=== PATIENT | male | born 1970 | race American Indian/Alaskan Native ===

== ENCOUNTER 2020-03-07 08:26 | Emergency (ER) | payer MEDICARE ==
--- NOTE | 2020-03-07 09:45 | Emergency Department Report ---
HPI - General Chief Complaint: Seizure Time Seen by Provider: 03/07/20 09:07 - HPI HPI: This is a 49-year-old -[place] male who presents to the emergency department via EMS from [facility] with a complaint of having 2 seizures since midnight, with the second and most recent seizure occurring around 5 AM. At the time of my examination the patient says that he feels fatigued but otherwise okay. He denies any current headache, body aches, chest pain, palpitations. He denies any fever, chills, shortness of breath. He does have a seizure history for which he is compliant with his Dilantin and Topamax. The patient is being seen at [facility] for his bipolar disorder. He also has a medical history of hypertension. He did not take anything, nor receive anything, for his symptoms prior to presentation. As a secondary complaint, the patient also has right hand pain and swelling that has been going on for the past week after the patient punched a wall in anger. ED Past Medical Hx - Past Medical History Previous Medical History?: Yes Hx Hypertension: Yes Hx Seizures: Yes Hx Psychiatric Treatment: Yes (Bipolar) - Surgical History Past Surgical History?: No - Social History Smoking Status: Never Smoker Substance Use Type: None - Medications Home Medications: Home Medications Medication Instructions Recorded Confirmed Last Taken Type Amlodipine Besylate [Norvasc] 5 mg PO DAILY 03/07/20 03/07/20 Unknown History Docusate Sodium [Colace CAP] 100 mg PO BID 03/07/20 03/07/20 Unknown History FLUoxetine [PROzac] 20 mg PO DAILY 03/07/20 03/07/20 Unknown History OLANzapine [ZyPREXA] 10 mg PO QHS 03/07/20 03/07/20 Unknown History Phenytoin [Dilantin] 100 mg PO TID 03/07/20 03/07/20 Unknown History Topiramate [Topamax] 100 mg PO BID 03/07/20 03/07/20 Unknown History ED Review of Systems ROS: Stated complaint: SEIZURE Other details as noted in HPI Comment: All other systems reviewed and negative Constitutional: denies: chills, fever Eyes: denies: eye pain, vision change ENT: denies: ear pain, throat pain Respiratory: denies: cough, shortness of breath Cardiovascular: denies: chest pain, palpitations Gastrointestinal: denies: abdominal pain, vomiting Genitourinary: denies: dysuria, discharge Musculoskeletal: joint swelling (Right hand), arthralgia (Right hand) Skin: denies: lesions, pruritus Neurological: other (Seizures). denies: headache Physical Exam - Physical Exam Vital Signs: Vital Signs 03/07/20 08:35 Temperature 98.1 F Pulse Rate 86 Respiratory 16 Rate Blood Pressure 145/92 O2 Sat by Pulse 99 Oximetry Physical Exam: GENERAL: The patient is well-developed well-nourished. HENT: Normocephalic. Atraumatic. Patient has moist mucous membranes. EYES: Extraocular motions are intact. NECK: Supple. Trachea is midline. CHEST/LUNGS: Clear to auscultation. There is no respiratory distress noted. HEART/CARDIOVASCULAR: Regular. There is no tachycardia. There is no murmur. ABDOMEN: Abdomen is soft, nontender. Patient has normal bowel sounds. SKIN: There is nonpitting swelling to the dorsum of the right hand. No erythema, rash or lesions. NEURO: The patient is awake, alert, and oriented. The patient is cooperative. The patient has no focal neurologic deficits. Normal speech. Cranial nerves II through XII grossly intact. MUSCULOSKELETAL: There is tenderness to palpation to the dorsum of the right hand. Radial pulse +2/4 and capillary refill less than 2 seconds to the affected right hand. There is some decreased range of motion of the right hand and fingers secondary to pain and swelling. ED Course Vital Signs 03/07/20 08:35 Temperature 98.1 F Pulse Rate 86 Respiratory 16 Rate Blood Pressure 145/92 O2 Sat by Pulse 99 Oximetry ED Medical Decision Making - Lab Data Result diagrams: 03/07/20 10:14 03/07/20 10:14 - Radiology Data Radiology results: image reviewed interpreted by me: Right hand, 3 views INDICATION: right hand pain, punched wall 1 week ago. COMPARISON: None. FINDINGS: Frontal, lateral, and oblique views of the hand labeled right were obtained. There are mildly displaced transverse fractures of the distal third, fourth, and fifth metacarpals with slight palmar angulation. IMPRESSION: Mildly displaced transverse fractures of the distal right third, fourth, and fifth metacarpals with slight palmar angulation. - Medical Decision Making Regarding the patient's right hand pain, an x-ray shows that he has a fracture of the shaft of the third, fourth and fifth metacarpals. There is slight palmar angulation. The patient does have some dorsal swelling of the hand but it is soft and there does not appear to be any compartment syndrome. He has good distal capillary refill and right wrist radial pulse is +2/4. He has been placed in a volar splint. This occurred 6+ days ago. He has been instructed to follow-up with an orthopedist upon completion of his time at [facility] for his psychiatric treatment. The patient also presented secondary to having 2 seizures since midnight. Since being in the emergency department he is awake, alert, oriented and does not appear in any acute distress. His only complaint is some fatigue. He does not have any focal, motor or sensory deficits and his cranial nerves are intact. Vital signs have been reassuring throughout his ED course including being afebrile. Labs have been mostly unremarkable including CBC, metabolic panel, blood alcohol level, and the patient is therapeutic on his phenytoin. There is an elevation in the CK level but not at a level that is concerning for rhabdomyolysis. Patient was reevaluated multiple times over multiple hours and there has been no return for any seizure-like activity. He has been instructed to continue with his antiepileptic medications, avoid any alcohol or illicit drugs, avoid excessive caffeine, and he has been given outpatient referral for neurology. Patient will return to the emergency department with any worsening of his symptoms or with any acute distress. Critical Care Time: No Critical care attestation.: If time is entered above; I have spent that time in minutes in the direct care of this critically ill patient, excluding procedure time. ED Disposition Clinical Impression: Seizure, Seizure disorder Fracture of third metacarpal bone of right hand Qualifiers: Encounter type: initial encounter Fracture type: closed Metacarpal location: shaft Fracture alignment: displaced Qualified Code(s): S62.322A - Displaced fracture of shaft of third metacarpal bone, right hand, initial encounter for closed fracture Fracture of fourth metacarpal bone of right hand Qualifiers: Encounter type: initial encounter Fracture type: closed Metacarpal location: shaft Fracture alignment: displaced Qualified Code(s): S62.324A - Displaced fracture of shaft of fourth metacarpal bone, right hand, initial encounter for closed fracture Fracture of fifth metacarpal bone of right hand Qualifiers: Encounter type: initial encounter Fracture type: closed Metacarpal location: shaft Fracture alignment: displaced Qualified Code(s): S62.326A - Displaced fracture of shaft of fifth metacarpal bone, right hand, initial encounter for closed fracture Disposition: DC/TX-65 PSY HOSP/PSY UNIT Is pt being admited?: No Condition: Stable Instructions: Metacarpal Fracture, Seizure, Adult Additional Instructions: Continue taking your seizure medications as prescribed. Please avoid any alcohol use, illicit drug use, excessive caffeine use. I am giving you a referral for a local neurologist, Dr. George, to follow-up regarding your seizure disorder. Remain in the right upper extremity splint until follow-up with an orthopedist. I am giving you multiple referrals for local orthopedist to follow-up regarding your hand fractures. Please make sure you are seen immediately at the closest emergency department with any increased pain, increased swelling, skin color changes, numbness, or any concerns regarding your right hand. Return to the emergency department with any worsening of your symptoms, new or concerning symptoms not addressed during this current emergency department visit, or with any acute distress. Referrals: PRIMARY MD HI [Primary Care Provider] - 3-5 Days MATEUS GEORGE MD [Referring] - 3-5 Days ESAU LAMA MD [Staff Physician] - 3-[address] [facility] [Provider Group] - 3-5 Days Time of Disposition: 13:26
--- NOTE | 2020-03-07 10:17 | XRay Report ---
Right hand, 3 views INDICATION: right hand pain, punched wall 1 week ago. COMPARISON: None. FINDINGS: Frontal, lateral, and oblique views of the hand labeled right were obtained. There are mild ly displaced transverse fractures of the distal third, fourth, and fifth metacarpals with slight palm ar angulation. IMPRESSION: Mildly displaced transverse fractures of the distal right third, fourth, and fifth metacarpals with s light palmar angulation. Signer Name: Yousif Vazquez MD Signed: 03/07/2020 10:12 AM Workstation Name: [id number]
[2020-03-07 10:41] LABS: Basophils % (Auto) 0.5 % (0.0-1.8); Hematocrit 41.8 % (35.5-45.6); Hemoglobin 14.1 gm/dl (11.8-15.2); Lymphocytes # (Auto) 1.6 K/mm3 (1.2-5.4); Lymphocytes % (Auto) 18.1 % (13.4-35.0); Mean Corpuscular HGB Conc 34 % (32-34); Mean Corpuscular Volume 86 fl (84-94); Monocytes # (Auto) 0.8 K/mm3 (0.0-0.8); Monocytes % (Auto) 8.6 % (0.0-7.3); Platelet Count 329 K/mm3 (140-440); Red Blood Count 4.84 M/mm3 (3.65-5.03); Red Cell Distribution Width 13.9 % (13.2-15.2)
[2020-03-07 11:01] LABS: Alanine Aminotransferase 30 units/L (7-56); BUN/Creatinine Ratio 10; Blood Urea Nitrogen 11 mg/dL (9-20); Calcium 9.2 mg/dL (8.4-10.2); Hemolysis Index 6
[2020-03-07 17:18] VITALS: BP 132/86
== END 2020-03-07 17:18 ==
LOC: ED 08:26
DX: S62.322A Displaced fracture of shaft of third metacarpal bone, right hand, initial encounter for closed fracture (principal); S62.324A Displaced fracture of shaft of fourth metacarpal bone, right hand, initial encounter for closed fracture; S62.326A Displaced fracture of shaft of fifth metacarpal bone, right hand, initial encounter for closed fracture; G40.909 Epilepsy, unspecified, not intractable, without status epilepticus; I10 Essential (primary) hypertension; F31.9 Bipolar disorder, unspecified; Z79.899 Other long term (current) drug therapy; Z88.0 Allergy status to penicillin; X58.XXXA Exposure to other specified factors, initial encounter; Y93.89 Activity, other specified; Y92.89 Other specified places as the place of occurrence of the external cause; Y99.8 Other external cause status
CPT/HCPCS: 36415; 80053; 80185; 80320; 82550; 85025; G0480

== ENCOUNTER 2020-03-10 22:32 | Emergency (ER) | payer MEDICARE ==
--- NOTE | 2020-03-11 00:58 | Emergency Department Report ---
ED Seizure HPI - General Chief Complaint: Seizure Stated Complaint: SEIZURE Time Seen by Provider: 03/11/20 00:56 Source: RN/MD, EMS Mode of arrival: Ambulatory Limitations: No Limitations - History of Present Illness Initial Comments: Patient is a 49-year-old male who presents emergency room with complaints of seizure activity. Patient brought in by EMS. Patient is being transferred from a local psychiatric facility for medical clearance after a seizure. Patient has a sitter with him because the patient is on a 1013. Patient has a known seizure history and the patient is compliant with his medications per EMS. MD Complaint: seizure -: Sudden Description of Episode: loss of consciousness, tonic-clonic movement Witnessed:: Yes Trauma: No Seizure History: known seizure disorder, compliant with medication Place: other Possible Precipitating Event: none Associated Symptoms: denies other symptoms Treatments Prior to Arrival: none - Related Data Home Medications Medication Instructions Recorded Confirmed Last Taken Amlodipine Besylate [Norvasc] 5 mg PO DAILY 03/07/20 03/07/20 Unknown Docusate Sodium [Colace CAP] 100 mg PO BID 03/07/20 03/07/20 Unknown FLUoxetine [PROzac] 20 mg PO DAILY 03/07/20 03/07/20 Unknown OLANzapine [ZyPREXA] 10 mg PO QHS 03/07/20 03/07/20 Unknown Phenytoin [Dilantin] 100 mg PO TID 03/07/20 03/07/20 Unknown Topiramate [Topamax] 100 mg PO BID 03/07/20 03/07/20 Unknown Allergies Allergy/AdvReac Type Severity Reaction Status Date / Time Penicillins AdvReac Unknown Verified 03/07/20 08:51 ED Review of Systems ROS: Stated complaint: SEIZURE Other details as noted in HPI Comment: All other systems reviewed and negative ED Past Medical Hx - Past Medical History Previous Medical History?: Yes Hx Hypertension: Yes Hx Seizures: Yes Hx Psychiatric Treatment: Yes (Bipolar) Additional medical history: High Cholesterol - Surgical History Past Surgical History?: No - Family History Family history: no significant - Social History Smoking Status: Never Smoker Substance Use Type: None - Medications Home Medications: Home Medications Medication Instructions Recorded Confirmed Last Taken Type Amlodipine Besylate [Norvasc] 5 mg PO DAILY 03/07/20 03/07/20 Unknown History Docusate Sodium [Colace CAP] 100 mg PO BID 03/07/20 03/07/20 Unknown History FLUoxetine [PROzac] 20 mg PO DAILY 03/07/20 03/07/20 Unknown History OLANzapine [ZyPREXA] 10 mg PO QHS 03/07/20 03/07/20 Unknown History Phenytoin [Dilantin] 100 mg PO TID 03/07/20 03/07/20 Unknown History Topiramate [Topamax] 100 mg PO BID 03/07/20 03/07/20 Unknown History ED Physical Exam - General Limitations: No Limitations General appearance: alert, in no apparent distress - Head Head exam: Present: atraumatic, normocephalic - Eye Eye exam: Present: normal appearance, PERRL Pupils: Present: normal accommodation - ENT ENT exam: Present: mucous membranes moist - Neck Neck exam: Present: normal inspection - Respiratory Respiratory exam: Present: normal lung sounds bilaterally. Absent: respiratory distress - Cardiovascular Cardiovascular Exam: Present: regular rate, normal rhythm. Absent: systolic murmur, diastolic murmur, rubs, gallop - GI/Abdominal GI/Abdominal exam: Present: soft, normal bowel sounds - Rectal Rectal exam: Present: deferred - Extremities Exam Extremities exam: Present: normal inspection - Back Exam Back exam: Present: normal inspection - Neurological Exam Neurological exam: Present: alert, oriented X3 - Psychiatric Psychiatric exam: Present: normal affect, normal mood - Skin Skin exam: Present: warm, dry, intact, normal color. Absent: rash ED Course Vital Signs 03/10/20 23:00 Temperature 98 F Pulse Rate 98 H Respiratory 20 Rate Blood Pressure 156/87 [Left] O2 Sat by Pulse 100 Oximetry - Reevaluation(s) Reevaluation #1: Blood pressure rechecked. Patient current blood pressure is 128/70. 03/11/20 01:01 Reevaluation #2: I discussed all results and clinical findings with patient. I discussed plan of care with patient. Patient agrees with plan of care. Patient is stable for discharge. Patient will be discharged back to psychiatry facility. Patient given discharge instructions. Patient voiced understanding of discharge instructions. 03/11/20 02:41 ED Medical Decision Making - Lab Data Result diagrams: 03/11/20 01:06 03/11/20 01:06 - Radiology Data Radiology results: report reviewed Examination: CT of the head without contrast Clinical information: Seizure Comparison: None Technical: Multiple axial CT images of the head were obtained without intravenous contrast. Sagittal and coronal reformats were obtained. All CTs at this facility utilize dose reduction techniques including automated exposure control, iterative reconstruction and weight based dosing when appropriate to reduce patient radiation dose to as low as reasonable achievable. Findings: INTRACRANIAL CONTENTS: There is no CT evidence of acute intracranial hemorrhage or large territorial infarct. The ventricular system appears normal in size. No extra- axial fluid collections are identified. ORBITS: The bilateral orbits and globes appear normal SKULL: No acute bony abnormality is visualized. PARANASAL SINUSES / MASTOID AIR CELLS: There is mild mucosal thickening of the ethmoid air cells. Remaining paranasal sinuses and mastoid air cells are grossly clear. Impression: 1. No CT evidence of acute intracranial process. - Medical Decision Making Patient is a 49-year-old male that presents from a local psychiatric facility for medical clearance after a seizure. Patient has a known history of seizures. Patient is compliant with his seizure medication. Is unclear if patient hit his head or not. Patient had a CT scan to rule out intracranial process and the fact that he has seizures. Patient's head CT is negative for acute findings. Patient's labs are essentially unremarkable. Patient stable to be discharged back to his psychiatric facility. Patient discharged from the ER. Patient and the patient's sitter given the discharge instructions. - Differential Diagnosis Seizure, breakthrough seizure, head injury Critical care attestation.: If time is entered above; I have spent that time in minutes in the direct care of this critically ill patient, excluding procedure time. ED Disposition Clinical Impression: Seizure, Seizure disorder Disposition: DC-01 TO HOME OR SELFCARE Is pt being admited?: No Does the pt Need Aspirin: No Condition: Stable Instructions: Epilepsy, [id number], Epilepsy, Seizure, Adult, [id number] Additional Instructions: Patient to follow-up with primary care in 2 to 3 days. Patient to follow-up with neurology in 2 to 3 days. Patient to rest. Patient to increase water. Patient to avoid strenuous exercise or heavy lifting until cleared by neurology. Patient to take Tylenol or ibuprofen as needed for pain. Patient to take meds as directed. Patient to return to the ER if condition worsens, changes or new symptoms arise. Referrals: PRIMARY CARE, [Primary Care Provider] - 2-3 Days Time of Disposition: 02:43
[2020-03-11 01:34] LABS: Basophils % (Auto) 0.6 % (0.0-1.8); Hematocrit 37.7 % (35.5-45.6); Hemoglobin 12.5 gm/dl (11.8-15.2); Lymphocytes # (Auto) 1.6 K/mm3 (1.2-5.4); Lymphocytes % (Auto) 21.5 % (13.4-35.0); Mean Corpuscular HGB Conc 33 % (32-34); Mean Corpuscular Volume 86 fl (84-94); Monocytes # (Auto) 0.9 K/mm3 (0.0-0.8); Monocytes % (Auto) 11.8 % (0.0-7.3); Platelet Count 331 K/mm3 (140-440); Red Blood Count 4.37 M/mm3 (3.65-5.03); Red Cell Distribution Width 13.7 % (13.2-15.2)
[2020-03-11 01:50] LABS: Alanine Aminotransferase 50 units/L (7-56); Albumin 4.2 g/dL (3.9-5); BUN/Creatinine Ratio 13; Blood Urea Nitrogen 15 mg/dL (9-20); Calcium 9.2 mg/dL (8.4-10.2); Hemolysis Index 3
--- NOTE | 2020-03-11 02:01 | Cat Scan Report ---
Examination: CT of the head without contrast Clinical information: Seizure Comparison: None Technical: Multiple axial CT images of the head were obtained without intravenous contrast. Sagittal and coronal reformats were obtained. All CTs at this facility utilize dose reduction techniques inc luding automated exposure control, iterative reconstruction and weight based dosing when appropriate to reduce patient radiation dose to as low as reasonable achievable. Findings: INTRACRANIAL CONTENTS: There is no CT evidence of acute intracranial hemorrhage or large territorial infarct. The ventricular system appears normal in size. No extra-axial fluid collections are identifi ed. ORBITS: The bilateral orbits and globes appear normal SKULL: No acute bony abnormality is visualized. PARANASAL SINUSES / MASTOID AIR CELLS: There is mild mucosal thickening of the ethmoid air cells. Rem aining paranasal sinuses and mastoid air cells are grossly clear. Impression: 1. No CT evidence of acute intracranial process. Signer Name: Mila June MD Signed: 03/11/2020 1:56 AM Workstation Name: [id number]
[2020-03-11 03:32] VITALS: BP 128/70
== END 2020-03-11 05:00 | disposition home or self-care (01) ==
LOC: ED 22:32
DX: G40.909 Epilepsy, unspecified, not intractable, without status epilepticus (principal); I10 Essential (primary) hypertension; F31.9 Bipolar disorder, unspecified; Z79.899 Other long term (current) drug therapy; Z88.0 Allergy status to penicillin
CPT/HCPCS: 36415; 70450; 80053; 85025